=== PATIENT | female | born 1960 | race Caucasian/White ===

== ENCOUNTER 2019-01-17 12:37 | Outpatient (CLI) | payer OTHER | END 2019-01-17 23:59 | disposition home or self-care (01) | LOC: CFH 12:37 | PROVIDERS: ATTEND Family Medicine | DX: Z12.31 Encounter for screening mammogram for malignant neoplasm of breast (principal); N64.89 Other specified disorders of breast | CPT/HCPCS: 77063; 77067 ==

== ENCOUNTER → 2020-12-23 | Outpatient (CLI) | payer OTHER | END | disposition home or self-care (01) | LOC: CFH 07:18 | PROVIDERS: ATTEND Family Medicine | DX: N63.0 Unspecified lump in unspecified breast (principal) | CPT/HCPCS: 76642; 77062; 77066; G0279 ==